=== PATIENT | female | born 1960 | race Caucasian/White ===

== ENCOUNTER 2017-03-03 06:42 | Emergency (ER) | payer MEDICAID ==
[2017-03-03] MEDS ORDERED: Sodium Chloride 0.45% 1,000 ML IV ONE (07:20)
--- NOTE | 2017-03-03 07:33 | ED Physician Chart ---
ED Chief Complaint/HPI - Patient Information Allergies:: Allergies Allergy/AdvReac Type Severity Reaction Status Date / Time No Known Allergies Allergy Verified 03/03/17 06:56 Vitals:: Vital Signs - 8 hr 03/03/17 03/03/17 03/03/17 06:45 08:16 08:39 Temp 98.2 F 98.0 F 98.0 F HR 86 74 74 RR 18 19 19 BP 154/91 137/81 137/81 O2 Sat % 100 100 100 <Terence Hernandez - Last Filed: 03/03/17 08:44> - Patient Information Date Seen:: 03/03/17 Time Seen:: 07:00 Chief Complaint:: HEADACHE History of Present Illness:: THIS IS A 57 YO FEMALE WHO IS CONCERNED ABOUT A HEADACHE THAT STARTED LAST NIGHT WHILE WATCHING TV. THE PATIENT STATES THAT SHE HAS HAD A HEADACHE LIKE THIS ONE BEFORE. THIS HEADACHE IS ASSOCIATED WITH NAUSEA, DIARRHEA BUT NO VOMITING. SHE DENIES CHEST PAIN, ABDOMINAL PAIN AND LEG PAIN. Allergies:: Allergies Allergy/AdvReac Type Severity Reaction Status Date / Time No Known Allergies Allergy Verified 03/03/17 06:56 Vitals:: Vital Signs - 8 hr 03/03/17 06:45 Temp 98.2 F HR 86 RR 18 BP 154/91 O2 Sat % 100 Historian:: Patient Review:: Nurse's Note Reviewed <Trav Sidhu - Last Filed: 03/03/17 08:52> ED Review of Systems - Review of Systems Neurological: Headache <Terence Hernandez - Last Filed: 03/03/17 08:44> - Review of Systems General/Constitutional: No fever, No chills, No weight loss, No weakness, No diaphoresis, No edema, No loss of appetite Skin: No skin lesions, No rash, No bruising Head: Headache, No light-headedness Eyes: No loss of vision, No pain, No diplopia ENT: No earache, No nasal drainage, No sore throat, No tinnitus Neck: No neck pain, No swelling, No thyromegaly, No stiffness, No mass noted Cardio Vascular: No chest pain, No palpitations, No PND, No orthopnea, No edema Pulmonary: No SOB, No cough, No sputum, No wheezing GI: Nausea, No vomiting, Diarrhea, No pain, No melena, No hematochezia, No constipation, No hematemesis G/U: No dysuria, No frequency, No hematuria Musculoskeletal: No bone or joint pain, No back pain, No muscle pain Endocrine: No polyuria, No polydipsia Psychiatric: No prior psych history, No depression, No anxiety, No suicidal ideation Hematopoietic: No bruising, No lymphadenopathy Allergic/Immuno: No urticaria, No angioedema Neurological: No syncope, No focal symptoms, No weakness, No paresthesia, No headache, No seizure, No dizziness, No confusion, No vertigo <Trav Sidhu Filed: 03/03/17 08:52> ED Past Medical History - Past Medical History Obtainable: Yes Past Medical History: No significant medical hx Family History: None Social History: Non Smoker, No Alcohol, No Drug Use, Employed Surgical History: Appendectomy, Hysterectomy, Psychiatricy History: None Medication: Reviewed <Trav Sidhu Filed: 03/03/17 08:52> Family Medical History - Family Member Mother Living Status: Still Living Hx Family Diabetes: Yes <Trav Sidhu Filed: 03/03/17 08:52> ED Physical Exam - Physical Examination General/Constitutional: Awake, Well-developed, well-nourished, Alert, No distress, GCS 15, Non-toxic appearing, Ambulatory Head: Atraumatic Eyes: Lids, conjuctiva normal, PERRL, EOMI Skin: Nl inspection, No rash, No skin lesions, No ecchymosis, Well hydrated, No lymphadenopathy ENMT: External ears, nose nl, Nasal exam nl, Lips, teeth, gums nl Neck: Nontender, Full ROM w/o pain, No JVD, No nuchal rigidity, No bruit, No mass, No stridor Respiratory: Nl effort/Exclusion, Clear to Auscultation, No Wheeze/Rhonchi/Rales Cardio Vascular: RRR, No murmur, gallop, rubs, NL S1 S2 GI: No tenderness/rebounding/guarding, No organomegaly, No hernia, Normal BS's, Nondistended, No mass/bruits, No McBurney tenderness : No CVA tenderness Extremities: No tenderness or effusion, Full ROM, normal strength in all extremities, No edema, Normal digits & nails Neuro/Psych: Alert/oriented, DTR's symmetric, Normal sensory exam, Normal motor strength, Judgement/insight normal, Mood normal, Normal gait, No focal deficits Misc: normal gait, Normal back, No paraspinal tenderness <Trav Sidhu - Last Filed: 03/03/17 08:52> ED Labs/Radiology/EKG Results - Lab Results Results: Laboratory Tests 03/03/17 03/03/17 03/03/17 06:55 07:25 07:25 WBC RBC Hgb Hct MCV MCH MCHC Differential RDW Plt Count MPV Neutrophils % Lymphocytes % Monocytes % Eosinophils % Basophils % PT 10.2 INR 0.98 PTT (Actin FS) 25.1 L Sodium Potassium Chloride Carbon Dioxide Anion Gap BUN Creatinine Est GFR ( Amer) Est GFR (Non-Af Amer) BUN/Creatinine Ratio Glucose Calcium Total Bilirubin AST ALT Alkaline Phosphatase Troponin I Total Protein Albumin Globulin Albumin/Globulin Ratio Triglycerides 314 H Cholesterol 152 LDL Cholesterol Direct 102 HDL Cholesterol 32 TSH Urine Source CLEAN C Urine Color YELLOW Urine Clarity CLEAR Urine pH 6.0 Ur Specific [place] 1.020 Urine Protein NEGATIVE Urine Glucose (UA) NEGATIVE Urine Ketones NEGATIVE Urine Blood TRACE Urine Nitrate NEGATIVE Urine Bilirubin NEGATIVE Urine Urobilinogen 0.2 Ur Leukocyte Esterase NEGATIVE Urine RBC 0-2 Urine WBC 0-2 Ur Epithelial Cells FEW Urine Bacteria 1+ H 03/03/17 03/03/17 03/03/17 07:25 07:25 07:25 WBC 6.4 RBC 4.58 Hgb 14.2 Hct 41.6 MCV 90.8 MCH 30.9 MCHC Differential 34.0 RDW 12.7 Plt Count 251 MPV 8.9 Neutrophils % 48.7 Lymphocytes % 38.5 Monocytes % 10.9 H Eosinophils % 1.9 Basophils % 0.0 PT INR PTT (Actin FS) Sodium 138 Potassium 3.7 Chloride 106 Carbon Dioxide 24.9 Anion Gap 10.8 BUN 14 Creatinine 0.7 Est GFR ( Amer) > 60.0 Est GFR (Non-Af Amer) > 60.0 BUN/Creatinine Ratio 20.0 Glucose 134 H Calcium 9.6 Total Bilirubin 0.4 AST 23 ALT 44 Alkaline Phosphatase 81 Troponin I < 0.01 L Total Protein 7.0 Albumin 4.5 Globulin 2.5 Albumin/Globulin Ratio 1.8 Triglycerides Cholesterol LDL Cholesterol Direct HDL Cholesterol TSH Urine Source Urine Color Urine Clarity Urine pH Ur Specific [place] Urine Protein Urine Glucose (UA) Urine Ketones Urine Blood Urine Nitrate Urine Bilirubin Urine Urobilinogen Ur Leukocyte Esterase Urine RBC Urine WBC Ur Epithelial Cells Urine Bacteria 03/03/17 07:25 WBC RBC Hgb Hct MCV MCH MCHC Differential RDW Plt Count MPV Neutrophils % Lymphocytes % Monocytes % Eosinophils % Basophils % PT INR PTT (Actin FS) Sodium Potassium Chloride Carbon Dioxide Anion Gap BUN Creatinine Est GFR ( Amer) Est GFR (Non-Af Amer) BUN/Creatinine Ratio Glucose Calcium Total Bilirubin AST ALT Alkaline Phosphatase Troponin I Total Protein Albumin Globulin Albumin/Globulin Ratio Triglycerides Cholesterol LDL Cholesterol Direct HDL Cholesterol TSH 1.30 Urine Source Urine Color Urine Clarity Urine pH Ur Specific [place] Urine Protein Urine Glucose (UA) Urine Ketones Urine Blood Urine Nitrate Urine Bilirubin Urine Urobilinogen Ur Leukocyte Esterase Urine RBC Urine WBC Ur Epithelial Cells Urine Bacteria - Radiology Results Results: ct scan of the brain = nad <Terence Hernandez - Last Filed: 03/03/17 08:44> ED Assessment - Assessment General Assessment: headache <Terence Hernandez - Last Filed: 03/03/17 08:44> ED Septic Shock - . Is Septic Shock (SBP<90, OR Lactate>4 mmol\L) present?: No - <6hrs of presentation: Vital Signs: Vital Signs - 8 hr 03/03/17 03/03/17 03/03/17 06:45 08:16 08:39 Temp 98.2 F 98.0 F 98.0 F HR 86 74 74 RR 18 19 19 BP 154/91 137/81 137/81 O2 Sat % 100 100 100 <Terence Hernandez - Last Filed: 03/03/17 08:44> - <6hrs of presentation: Vital Signs: Vital Signs - 8 hr 03/03/17 06:45 Temp 98.2 F HR 86 RR 18 BP 154/91 O2 Sat % 100 <Trav Sidhu - Last Filed: 03/03/17 08:52> ED Reassessment (Disposition) - Reassessment Reassessment Condition:: Improved - Diagnosis Diagnosis:: HEADACHE - Aftercare/Follow up Instructions Aftercare/Follow-Up Instructions:: Counseled pt regarding lab results/diagnosis & need follow up, Refer to Discharge Instructions, Counseled pt & family regarding lab results/diagnosis & need follow up - Patient Disposition Discharge/Transfer:: Home Condition at Disposition:: Improved <Terence Hernandez - Last Filed: 03/03/17 08:44> ED Discharge Plan <Terence Hernandez - Last Filed: 03/03/17 08:44> <Trav Sidhu - Last Filed: 03/03/17 08:52> - Patient Disposition Admit/Discharge/Transfer: PT DISCHARGED HOME Condition at Disposition: Improved Prescriptions: Gabapentin 600 mg PO TID PRN #24 tablet PRN Reason: PAIN Additional Instructions: FOLLOW WITH YOUR PMD IN THE AM AND REST. TAKE THE GABAPENTIN DIRECTED.
[2017-03-03 07:46] LABS: URINE BILIRUBIN NEGATIVE (NEGATIVE); URINE BLOOD TRACE (NEGATIVE); URINE GLUCOSE (UA) NEGATIVE (NEGATIVE); URINE KETONE NEGATIVE (NEGATIVE); URINE PROTEIN NEGATIVE (NEGATIVE); URINE UROBILINOGEN 0.2 E.U./dL (0.2 - 1.0)
[2017-03-03 07:51] LABS: % EOSINOPHILS 1.9 % (0.0-5.0); % LYMPHOCYTES 38.5 % (20.0-50.0); % MONOCYTES 10.9 % (2.0-10.0); % NEUTROPHILS 48.7 % (40.0-80.0); HEMATOCRIT 41.6 % (41.0-60); HEMOGLOBIN 14.2 gm/dL (12-16); MEAN CELL VOLUME 90.8 fl (81-100); MEAN CORPUSCULAR HEMOGLOBIN 30.9 pg (27.0-31.0); MEAN PLATELET VOLUME 8.9 fl; NEUTROPHILE ABSOLUTE 3.1 Th/cmm (1.8-8.0); PLATELET COUNT 251 Th/cmm (150-400); RED BLOOD COUNT 4.58 Mil/cmm (3.80-5.10); RED CELL DISTRIBUTION WIDTH 12.7 % (11.5-20.0); WHITE BLOOD COUNT 6.4 Th/cmm (4.8-10.8)
[2017-03-03 07:58] LABS: INR 0.98 (0.5-1.4); PROTHROMBIN TIME (TEST) 10.2 SECONDS (9.5-11.5)
[2017-03-03 08:00] LABS: URINE COLOR YELLOW
[2017-03-03 08:01] LABS: URINE BACTERIA 1+ /hpf (NONE SEEN); URINE EPITHELIAL CELLS FEW /lpf (FEW); URINE RBC 0-2 /hpf (0-5); URINE WBC 0-2 /hpf (0-5)
[2017-03-03 08:02] LABS: ALB/GLOB RATIO 1.8 (1.0-1.8); ALKALINE PHOSPHATASE 81 U/L (34-104); ANION GAP 10.8 (7.0-16.0); BILIRUBIN,TOTAL 0.4 mg/dL (0.3-1.0); BUN - UREA NITROGEN 14 mg/dL (7-25); CALCIUM SERUM 9.6 mg/dL (8.6-10.3); CARBON DIOXIDE 24.9 mEq/L (21.0-31.0); CHLORIDE 106 mEq/L (98-107); CREATININE - SERUM 0.7 mg/dL (0.6-1.2); GLUCOSE 134 mg/dL (70-105); POTASSIUM SERUM 3.7 mEq/L (3.5-5.1); SGOT 23 U/L (13-39); SGPT/ALT 44 U/L (7-52); SODIUM SERUM 138 mEq/L (136-145)
[2017-03-03 08:03] LABS: CHOLESTEROL 152 mg/dL (<200); TRIGLYCERIDES 314 mg/dL (<150)
--- NOTE | 2017-03-03 08:32 | Diagnostic Imaging Report ---
Head CT without intravenous contrast Indication: Headache Comparison: None Technique: Axial images were obtained from the vertex to the skull base without IV contrast. Coronal reconstructions were made. Total DLP: 575 , CTDI32.6 FINDINGS: Images of the brain obtained without contrast demonstrate no acute hemorrhage. No mass lesions identified. The ventricles and basal cisterns are patent. The gibson-white matter differentiation is preserved. There is no mass effect or midline shift. No skull fractures identified. No soft tissue swelling. The paranasal sinuses are clear. IMPRESSION: No acute intracranial abnormality.
--- NOTE | 2017-03-03 08:37 | Diagnostic Imaging Report ---
Chest x-ray single view History: Pain Comparison: None The heart size is normal. No focal pulmonary parenchymal processes. No hilar or mediastinal abnormalities. Impression: No acute abnormalities.
[2017-03-03 11:24] LABS: AMPHETAMINE URINE NEGATIVE (NEGATIVE); BARBITURATES URINE NEGATIVE (NEGATIVE); METHADONE URINE NEGATIVE (NEGATIVE)
== END 2017-03-03 09:30 | disposition home or self-care (01) ==
LOC: ER 06:42
DX: R51 Headache (principal); R19.7 Diarrhea, unspecified; R11.0 Nausea; Z90.710 Acquired absence of both cervix and uterus; Z90.49 Acquired absence of other specified parts of digestive tract
CPT/HCPCS: 99285; 96374; 96375; 71010; 70450; 84484; 36415; 80307; 84443; 86592; 85025; 85610; 85730; 81001; 80053; 80061; J1885; J2060; J7030